=== PATIENT | male | born 1960 | race American Indian/Alaskan Native ===

== ENCOUNTER 2018-11-14 01:14 | Emergency (ER) | payer MEDICAID ==
--- NOTE | 2018-11-14 01:43 | Emergency Department Report ---
Chief Complaint: Extremity Problem,Nontraumatic Stated Complaint: SWOLLEN LEGS Time Seen by Provider: 11/14/18 01:42 MSE screening note: Focused history and physical exam performed. Due to findings the following was ordered: ED Disposition for MSE Condition: Stable
--- NOTE | 2018-11-14 01:53 | Emergency Department Report ---
Blank Doc - Documentation Documentation: This is a 58-year-old male here reported that his legs are swollen and also his left knee is swollen. He states that he has a history of right leg DVT and is on several pill. Denies any shortness of breath or chest pain. He said he has some pain in the back of his legs. He has a history of schizophrenia bipolar, hypertension and diabetes. Blood pressure was 155/107 and he is on amlodipine which could be the reason for his leg swelling. He denies any shortness of breath. Assessment Extremities: Mild swelling to bilateral lower extremity without any redness and comparing to right knee left knee is swollen and tender to palpate. He is able to ambulate without any difficulties. Pedal Pulses are palpable. Plan Labs Doppler ultrasound bilateral lower extremity X-ray left knee Patient was screened and seen by myself. I discussed the patient that he will be seen by a provider in main ED. He also described that they will be coming to get him to get labs, x-ray and ultrasound. I discussed with him that he does not need to leave the hospital as he could have life-threatening problem. Patient agrees and screened by myself and will be seen by another ED provider.
[2018-11-14 02:19] LABS: Basophils % (Auto) 0.5 % (0.0-1.8); Eosinophils # (Auto) 0.3 K/mm3 (0.0-0.4); Eosinophils % (Auto) 3.7 % (0.0-4.3); Hematocrit 41.2 % (35.5-45.6); Lymphocytes # (Auto) 1.5 K/mm3 (1.2-5.4); Lymphocytes % (Auto) 17.8 % (13.4-35.0); Mean Corpuscular HGB Conc 34 % (32-34); Mean Corpuscular Volume 92 fl (84-94); Monocytes # (Auto) 0.5 K/mm3 (0.0-0.8); Monocytes % (Auto) 6.1 % (0.0-7.3); Platelet Count 233 K/mm3 (140-440); Red Cell Distribution Width 14.5 % (13.2-15.2)
[2018-11-14 02:30] LABS: INR 1.44 (0.87-1.13)
[2018-11-14 02:31] LABS: Partial Thromboplastin Time 34.1 Sec. (24.2-36.6)
[2018-11-14 02:44] LABS: Alanine Aminotransferase 14 units/L (7-56); Albumin 4.2 g/dL (3.9-5); BUN/Creatinine Ratio 19; Blood Urea Nitrogen 13 mg/dL (9-20); Hemolysis Index 7
--- NOTE | 2018-11-14 04:13 | Vascular Lab Report ---
FINAL REPORT PROCEDURE: VL VENOUS DUPLEX LE BILAT TECHNIQUE: Duplex Doppler ultrasound of the BILATERAL common and superficial femoral, popliteal, pos terior tibial and proximal deep femoral and greater saphenous veins was attempted. Maguire scale imaging with and without compression, spectral waveform analysis with and without augmentation, and color fl ow Doppler were employed. CPT 60935 HISTORY: swelling to legs with h/o DVT ,Swelling of limb 729.81 and edema 782.3 COMPARISON: No prior studies are available for comparison. FINDINGS: RIGHT LOWER EXTREMITY: Deep Venous Thrombus: None. Superficial Venous Thrombus: None. Venous valvular incompetence: None. Soft tissue abnormality: None. Other: None. LEFT LOWER EXTREMITY: Deep Venous Thrombus: None. Superficial Venous Thrombus: None. Venous valvular incompetence: None. Soft tissue abnormality: None. Other: None. IMPRESSION: No evidence of deep venous thrombosis
[2018-11-14 05:17] VITALS: BP 159/101
[2018-11-14] MEDS ORDERED: NORCO 5/325 PO ONE (06:54)
--- NOTE | 2018-11-14 06:59 | Emergency Department Report ---
HPI - General Chief Complaint: Extremity Problem,Nontraumatic Time Seen by Provider: 11/14/18 01:42 - [facility] HPI: Room 18 The patient is a 58-year-old male presented with a chief complaint of bilateral lower extremity edema. The patient states for the past week he's had swelling and pain in both of his legs. Patient denies any preceding trauma. Patient denies previous episodes of same. Patient is currently also relatively low after being diagnosed with a DVT in the right lower extremity 2 years ago. Location: [See above] Duration: One week Quality: Pain Severity: Moderate Modifying factors: [see above] Context: [see above] Mode of transportation: [not driving] ED Past Medical Hx - Past Medical History Previous Medical History?: Yes Hx Hypertension: Yes Hx Diabetes: Yes Hx Deep Vein Thrombosis: Yes (RLE) Hx Psychiatric Treatment: Yes (schizophrenia, Bipolar) - Surgical History Past Surgical History?: Yes Additional Surgical History: thyroidectomy - Family History Family history: no significant - Social History Smoking Status: Current Every Day Smoker (1 pack per day) Substance Use Type: None (denies illicit drug use) - Medications Home Medications: Home Medications Medication Instructions Recorded Confirmed Last Taken Type Furosemide [Lasix] 20 mg PO QDAY #5 tablet 11/14/18 Unknown Rx HYDROcodone/APAP 5-325 [Charlo 1 - 2 each PO Q6HR PRN #12 tablet 11/14/18 Unknown Rx 5/325] ED Review of Systems ROS: Stated complaint: SWOLLEN LEGS Other details as noted in HPI Constitutional: no symptoms reported Eyes: denies: eye pain ENT: denies: throat pain Respiratory: no symptoms reported Cardiovascular: denies: chest pain Endocrine: no symptoms reported Gastrointestinal: denies: abdominal pain Genitourinary: denies: dysuria Musculoskeletal: arthralgia, myalgia Neurological: denies: headache Physical Exam - Physical Exam Vital Signs: Vital Signs 11/14/18 05:16 Temperature 98.4 F Pulse Rate 70 Respiratory 14 Rate Blood Pressure 159/101 [Right] O2 Sat by Pulse 100 Oximetry Physical Exam: GENERAL: The patient is well-developed well-nourished male lying on stretcher not appear to be in acute distress. [] HEENT: Normocephalic. Atraumatic. Extraocular motions are intact. Patient has moist mucous membranes. NECK: Supple. Trachea midline CHEST/LUNGS: There is no respiratory distress noted. HEART/CARDIOVASCULAR: Regular. There is no tachycardia. There is no gallop rub or murmur. ABDOMEN: Abdomen is soft, nontender. Patient has normal bowel sounds. There is no abdominal distention. SKIN: There is no rash. There is trace to 1+ bilateral lower extremity pitting edema. There is no diaphoresis. NEURO: The patient is awake, alert, and oriented. The patient is cooperative. The patient has normal speech MUSCULOSKELETAL: There is no evidence of acute injury. ED Course Vital Signs 11/14/18 05:16 Temperature 98.4 F Pulse Rate 70 Respiratory 14 Rate Blood Pressure 159/101 [Right] O2 Sat by Pulse 100 Oximetry ED Medical Decision Making - Lab Data Result diagrams: 11/14/18 01:54 11/14/18 01:54 Laboratory Tests 11/14/18 11/14/18 11/14/18 01:54 01:54 01:54 WBC 8.6 RBC 4.50 Hgb 14.0 Hct 41.2 MCV 92 MCH 31 MCHC 34 RDW 14.5 Plt Count 233 Lymph % (Auto) 17.8 Bowman % (Auto) 6.1 Eos % (Auto) 3.7 Baso % (Auto) 0.5 Lymph # 1.5 Bowman # 0.5 Eos # 0.3 Baso # 0.0 Seg Neutrophils % 71.9 H Seg Neutrophils # 6.2 PT 18.5 H INR 1.44 H APTT 34.1 Sodium 142 Potassium 4.1 Chloride 105.8 Carbon Dioxide 25 Anion Gap 15 BUN 13 Creatinine 0.7 L Estimated GFR > 60 BUN/Creatinine Ratio 19 Glucose 133 H Calcium 9.0 Total Bilirubin 0.20 AST 14 ALT 14 Alkaline Phosphatase 69 NT-Pro-B Natriuret Pep 130.2 Total Protein 7.6 Albumin 4.2 Albumin/Globulin Ratio 1.2 - Radiology Data Radiology results: report reviewed (bilateral lower extremity Doppler), image reviewed (bilateral lower extremity Doppler, left knee x-ray, chest x-ray) interpreted by me: Left knee x-ray-no acute fracture Chest x-ray-no focal infiltrates, no pneumothorax. No edema [facility] [address] [place] [address] Vascular Lab Report Signed Patient: JOSE J FINK MR#: [id number] : 1960 Acct:[id number] Age/Sex: 58 / M ADM Date: 11/14/18 Loc: ED Attending Dr: Ordering Physician: BOB JACKSON Date of Service: 11/14/18 Procedure(s): VL venous duplex LE BILAT Accession Number(s): [id number] cc: BOB JACKSON FINAL REPORT PROCEDURE: VL VENOUS DUPLEX LE BILAT TECHNIQUE: Duplex Doppler ultrasound of the BILATERAL common and superficial femoral, popliteal, posterior tibial and proximal deep femoral and greater saphenous veins was attempted. Maguire scale imaging with and without compression, spectral waveform analysis with and without augmentation, and color flow Doppler were employed. CPT 02823 HISTORY: swelling to legs with h/o DVT ,Swelling of limb 729.81 and edema 782.3 COMPARISON: No prior studies are available for comparison. FINDINGS: RIGHT LOWER EXTREMITY: Deep Venous Thrombus: None. Superficial Venous Thrombus: None. Venous valvular incompetence: None. Soft tissue abnormality: None. Other: None. LEFT LOWER EXTREMITY: Deep Venous Thrombus: None. Superficial Venous Thrombus: None. Venous valvular incompetence: None. Soft tissue abnormality: None. Other: None. IMPRESSION: No evidence of deep venous thrombosis Transcribed By: [facility] Dictated By: BLADE MIDDLETON MD Electronically Authenticated By: BLADE MIDDLETON MD Signed Date/Time: 11/14/18412 DD/ 0 TD/TT: 11/14/18410 - Differential Diagnosis renal failure, DVT, hypoalbuminemia, CHF Critical care attestation.: If time is entered above; I have spent that time in minutes in the direct care of this critically ill patient, excluding procedure time. ED Disposition Clinical Impression: Leg edema Disposition: DC-01 TO HOME OR SELFCARE Is pt being admited?: No Does the pt Need Aspirin: No Condition: Stable Instructions: Leg Edema (ED) Additional Instructions: Return to the emergency department immediately should you develop worsening symptoms, fever, inability to tolerate food or liquid or any other concerns. Prescriptions: Furosemide [Lasix] 20 mg PO QDAY #5 tablet HYDROcodone/APAP 5-325 [Charlo 5/325] 1 - 2 each PO Q6HR PRN #12 tablet PRN Reason: Pain Referrals: ILYA SANCHEZ MD [Primary Care Provider] - 3-5 Days [facility] [Outside] - 3-5 Days Time of Disposition: 07:06
--- NOTE | 2018-11-16 08:19 | XRay Report ---
FINAL REPORT PROCEDURE: XRAY KNEE COMPLETE LEFT TECHNIQUE: LEFT knee radiographs, AP, lateral and sunrise views. CPT 76160 HISTORY: LT KNEE PAIN AND SWELLING COMPARISON: No prior studies are available for comparison. FINDINGS: Fracture (s) and/or Dislocation(s): None . Alignment: Normal . Joint space(s): Normal . Soft tissues: Normal . Bone mineralization: Normal . Foreign bodies: None . IMPRESSION: Normal Examination.
--- NOTE | 2018-11-16 16:51 | XRay Report ---
FINAL REPORT PROCEDURE: XRAY CHEST 2 VIEWS TECHNIQUE: PA and lateral chest radiographs were obtained. CPT 16659 HISTORY: MIKAYLA COMPARISON: No prior studies are available for comparison. FINDINGS: Heart: Normal. Mediastinum/Vessels: Normal. Lungs/Pleural space: Normal. Bony thorax: Moderate degenerative changes of the thoracic spine. Other: IMPRESSION: Normal examination.
== END 2018-11-14 08:20 | disposition home or self-care (01) ==
LOC: ED 01:14
DX: R60.0 Localized edema (principal); M79.661 Pain in right lower leg; M79.662 Pain in left lower leg; I10 Essential (primary) hypertension; E11.9 Type 2 diabetes mellitus without complications; F31.9 Bipolar disorder, unspecified; F20.9 Schizophrenia, unspecified; F17.200 Nicotine dependence, unspecified, uncomplicated
CPT/HCPCS: 36415; 71046; 80053; 83880; 85025; 85610; 85730; 93970